=== PATIENT | male | born 1965 | race Caucasian/White ===

== ENCOUNTER 2022-02-08 18:08 | Emergency (ER) | payer SELFPAY ==
[~2022-02-08] VITALS: Ht 167.6 cm; Wt 77.1 kg
[2022-02-08 18:38] VITALS: BP 144/78
--- NOTE | 2022-02-08 19:51 | NUR ---
PT TAKEN TO BED 1
[2022-02-08] MEDS ORDERED: ACETAMINOPHEN 325 MG TAB PO ONE (19:55)
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
--- NOTE | 2022-02-08 21:38 | NUR ---
Chart checked and completed.
--- NOTE | 2022-02-08 21:38 | NUR ---
PATIENT ELOPED FROM FACILITY. DISCHARGE INSTRUCTIONS NOT GIVEN TO PATIENT. DR. JOYNER NOTIFIED.
== END 2022-02-08 21:38 | disposition left against medical advice (07) ==
LOC: MED 18:08
DX: M54.50 Low back pain, unspecified (principal); M25.512 Pain in left shoulder; V49.88XA Car occupant (driver) (passenger) injured in other specified transport accidents, initial encounter; Y93.89 Activity, other specified; Y92.89 Other specified places as the place of occurrence of the external cause; Y99.8 Other external cause status
CPT/HCPCS: 72040; 73030; 99284